=== PATIENT | female | born 1975 | race Two or more races ===

== ENCOUNTER 2016-09-29 06:45 | Observation (INO) | payer BC ==
[2016-09-29] MEDS ORDERED: CEFAZOLIN 1 GM VIAL ONE (07:03)
[2016-09-29] MEDS ORDERED: HYDROmorphone 1 MG INJECTION IV PRN ×2 (07:05)
[2016-09-29] MEDS ORDERED: MEPERIDINE 25 MG/ML TUBEX IV PRN (07:05)
[2016-09-29] MEDS ORDERED: hydrALAZINE 20 MG/ML VIAL IV PRN (07:05)
[2016-09-29] MEDS ORDERED: LABETALOL 20 MG/4 ML SYRINGE IV PRN (07:05)
[2016-09-29] MEDS ORDERED: FENTANYL 100 MCG/2 ML VIAL IV PRN (07:05)
[2016-09-29] MEDS ORDERED: ONDANSETRON HCL 4 MG ODT TAB PO PRN (07:05)
[2016-09-29] MEDS ORDERED: ONDANSETRON HCL 4 MG/2 ML VIAL IV PRN (07:05)
--- NOTE | 2016-09-29 07:10 | HIM.ANES ---
Anesthesia Evaluation & Plan Diagnoses: SUBMUCOUS LEIOMYOMA OF UTERUS (09/29/16) INTRAMURAL LEIOMYOMA OF UTERUS (09/29/16) EXCESSIVE AND FREQUENT MENSTRUATION WITH REGULAR CYCLE (09/29/16) DYSMENORRHEA, UNSPECIFIED (09/29/16) - Focused Review of Systems Cardiac History: No: Hx Cardiac Disorders HEENT: Yes: Hx Vision Problem (PRESCRIPTION GLASSES), Other HEENT Problems Gastrointestinal: No: Hx Gastrointestinal Disorders Neurological/Musculoskeletal: No: Hx Neurological Disorders Psychological: No Hx Mental/Emotional Disorders Blood/Autoimmune: Yes: Hx Anemia No: Hx AIDS, Hx Hepatitis (type) Smoking Status: Never smoker Surgical History: Yes: Appendectomy (AGE 31) - Focused Physical Exam NPO since: after Midnight Mallampati: Class II Neck: Full Range of Motion Dental: Normal - no significant findings Cardiovascular/Chest: Normal Respiratory: Lungs clear Any problems with anesthesia, including nausea and vomiting?: No Any relatives with a history of Malignant Hyperthermia?: No Does the patient have a history of Motion Sickness-: No Other: Allergies Allergy/AdvReac Type Severity Reaction Status Date / Time No Known Allergies Allergy Verified 09/27/16 11:29 Home Medications Medication Instructions Recorded Last Taken Type Ferrous Sulfate [Iron] 325 mg PO DAILY 09/27/16 Unknown History Folic Acid 1 mg PO DAILY 09/27/16 Unknown History Methotrexate Sodium [Methotrexate] 10 mg PO WEEKLY 09/27/16 09/26/16 History Height and Weight Patient's height 5 ft 1 in Patient's weight 54.431 kg - Anesthetic Plan Anesthesia Type: General ASA Class: 2 -: I have examined this patient and reviewed the medical record. The patient has been assessed prior to anesthesia. Risks and benefits of anesthesia and anesthetic technique options have been discussed and all questions answered. The patient accepts the risk and desires me to proceed with the planned anesthetic.
[2016-09-29] MEDS ORDERED: BUPIVACAINE 0.25% 30 ML VIAL INF ONE (08:00)
[2016-09-29] MEDS ORDERED: SIMETHICONE 80 MG TAB PO PRN (09:35)
[2016-09-29] MEDS ORDERED: MAGNESIUM HYDROXIDE 30 ML BOTTLE PO PRN (09:35)
[2016-09-29] MEDS ORDERED: DIPHENHYDRAMINE 50 MG/ML VIAL IV PRN (09:35)
[2016-09-29] MEDS ORDERED: PROMETHAZINE 25 MG/ML VIAL IV PRN (09:35)
[2016-09-29] MEDS ORDERED: OXYCODONE HCL 5 MG TABLET PO PRN (09:35)
[2016-09-29] MEDS ORDERED: Aluminum;Magnesium;Simethicone 30 ML UDC PO PRN (09:35)
[2016-09-29] MEDS: FENTANYL 100 MCG/2 ML VIAL IV PRN ×2 (09:45→09:55)
[2016-09-29] MEDS ORDERED: FENTANYL 100 MCG/2 ML VIAL ONE (09:46)
--- NOTE | 2016-09-29 09:48 | HIMOPRPT ---
DATE OF PROCEDURE: 09/29/16 PREOPERATIVE DIAGNOSIS: 1) dysmenorrhea 2) Menorrhagia 3) fibroid uterus POSTOPERATIVE DIAGNOSIS: 1) dysmenorrhea 2) Menorrhagia 3) fibroid uterus 4) endometriosis PROCEDURE: Total laparoscopic hysterectomy, bilateral salpingo-oophorectomy, cystoscopy SURGEON: Kalyani Crawford DO. ANESTHESIA: General. ESTIMATED BLOOD LOSS: 50 mL. COMPLICATIONS: None. DRAINS: Buck SPECIMENS: Uterus, cervix, bilateral tubes and ovaries FINDIN) 8 wk sized uterus 2) normal appearing tubes and ovaries 3) bladder with bilateral ureteral flow PROCEDURE IN DETAIL: The patient was taken to the operating room and placed on the operating room table in dorsal supine position. General anesthesia was then administered. She was then placed in low lithotomy position in Yellowfin stirrups with her arms tucked at her side. The patient was then prepped and draped in sterile fashion. The time out was then called. A Buck catheter was then placed without difficulty returning clear yellow urine. The lower edge of the umbilicus was injected with 0.25% Sensorcaine. A small vertical incision was made and a 5mm size trocar was placed under direct visualization. The abdomen was then infused with CO2. The patient was placed in deep Trendelenburg position. In the left lower quadrant, 3 fingerbreadths above the anterior superior iliac spine lateral to the epigastric vessels, the abdominal wall was injected with 0.25% Sensorcaine. An incision was made and a 10mm trocar was applied under direct visualization. The same procedure was used to place a 5mm trocar in the right lower quadrant. The uterus was then elevated. The pelvis was inspected and the above findings noted. The left mesosalpinx was taken down to the level of the round ligament which was transected as well. The bladder flap was then developed anteriorly. The left uterine artery pedicle was transected with ROJAS on minimum power. Several bites were taken medial and distal to this of the parametrial tissue down to the level of the internal cervical os. Once this was completed on the left side, the same procedure was carried out on the right side. The bladder flap was further developed gently using the ROJAS and a peanut applicator. A wet sponge stick was then placed in the vagina. The anterior fornix was distended and entered with the back blade of the ROJAS harmonic on max power. The posterior fornix was entered in a similar fashion. A wet lap tape was placed in the vagina to maintain the pneumoperitoneum. The left uterosacral-cardinal ligament complex was taken down with the ROJAS harmonic on max power and then the right uterosacral-cardinal ligament complex was taken down detaching the cervix from the vaginal cuff. A single-tooth tenaculum was then introduced through the vagina and the cervix was grasped and the uterus was placed in the vaginal vault to maintain the pneumoperitoneum. The lap tape was removed. The vaginal cuff was closed with [id number] #0 Vicryl sutures, tied in extracorporeal knot-tying technique. This gave good closure and adequate hemostasis to the cuff. The pelvis was irrigated with warm normal saline. Hemostasis was adequate. The pressure was reduced to 3mmHg and hemostasis was still noted. At this point , the bladder was instilled and noted to be intact with 300cc of sterile saline. Pneumoperitoneum was then evacuated. At this point the Buck catheter was removed. The 5mm scope was used to perform cystoscopy and bilateral ureteral jets were noted and the bladder dome appeared normal. The Buck catheter was then replaced to straight drainage. The ports were then removed. The abdominal incisions were then closed using 4-0 monocryl in a subcuticular fashion and dermabond was placed. The patient tolerated the procedure well. All sponge, instrument, lap, and needle counts were correct x2. She was transported to recovery in stable condition.
[2016-09-29] MEDS ORDERED: Vaccine Screening Complete SCH (12:00)
[2016-09-29] MEDS: KETOROLAC TROMETH 30 MG/ML VIAL IV SCH ×2 (12:24→18:09)
[2016-09-29] MEDS ORDERED: GLYCOPYRROLATE 1 MG VIAL IM ONE (12:50)
[2016-09-29] MEDS ORDERED: FENTANYL 250 MCG/5 ML VIAL IV ONE (12:50)
[2016-09-29] MEDS ORDERED: ROCURONIUM 50 MG/5 ML VIAL IV ONE (12:50)
[2016-09-29] MEDS ORDERED: DIPHENHYDRAMINE 50 MG/ML VIAL IV ONE (12:50)
[2016-09-29] MEDS ORDERED: DEXAMETHASONE 4 MG/ML VIAL IV ONE (12:50)
[2016-09-29] MEDS ORDERED: MIDAZOLAM 2 MG/2 ML VIAL IV ONE (12:50)
[2016-09-29] MEDS ORDERED: NEOSTIGMINE 1 MG/1 ML (1:1000) INJ 10 ML MDV IM ONE (12:50)
[2016-09-29] MEDS ORDERED: PROPOFOL 200 MG/20 ML VIAL IV ONE (12:50)
[2016-09-29] MEDS ORDERED: ONDANSETRON HCL 4 MG/2 ML VIAL IV ONE (12:50)
[2016-09-29] MEDS: LR 1,000 ML IV SCH (14:45)
[2016-09-29] MEDS: OXYCODONE HCL 5 MG TABLET PO PRN ×2 (14:56→22:04)
--- NOTE | 2016-09-29 17:51 | SC.ANESPOS ---
Post-Anesthesia Note LOC: Fully Awake Post-Anesthesia Assessment: Awake, Returned to Baseline, Hemodynamically Stable , Pain Control Adequate Phase I & II Recovery Complete: Yes Apparent Anesthesia Complication: No : N PACU Discharge Time: 10:55 - Vital Signs Blood Pressure: 110/59 Pulse: 77 Resp Rate: 16 O2 Sat: 100 Temp: 97.8 F - Comments Anesthesia Discharge Time Report Time 10:55
[2016-09-29] MEDS: Docusate Sodium 100 MG CAP PO SCH (22:04)
[2016-09-30] MEDS: LR 1,000 ML IV SCH ×2 (00:09→08:19)
[2016-09-30] MEDS: KETOROLAC TROMETH 30 MG/ML VIAL IV SCH ×3 (00:09→11:46)
[2016-09-30] MEDS: Docusate Sodium 100 MG CAP PO SCH (08:19)
[2016-09-30 10:17] VITALS: BP 109/56; PULSE 66; TEMP 98.2
--- NOTE | 2016-09-30 11:56 | OBGYNPROG ---
- Subjective Hospital Day #: 2 Post Op Day: 1 Cheif Complaint: s/p TLH, BS, cysto Reports: Tolerating Regular Diet, Passing Flatus, Voiding Freely. Denies: Complaints, Vomitting, Shortness of Breath, Chest Pain, Dizziness Pain: Reports: Well Managed - Objective Vital Signs: H&H Results 09/30/16 05:48 Hgb 8.9 L D Hct 27.0 L Last Vital Signs Temp 98.2 F 09/30/16 10:16 Pulse 66 09/30/16 10:16 Resp 16 09/30/16 10:16 BP 109/56 L 09/30/16 10:16 Pulse Ox 100 09/29/16 17:51 GENERAL: Alert, Oriented, No Acute Distress CARDIOVASCULAR/CHEST: Normal RESPIRATORY: Normal - CTA ABDOMEN: Bowel Sounds Present, Non-Distended, Non-Tender, Soft INCISION: Dermabond Intact, Incision Clean/Dry/Intact EXTERMITIES: Moves All Extremeties. negative: Edema OBGYN Progress Note - ASSESSMENT (1) S/P laparoscopic hysterectomy Status: Acute Code(s): Z90.710 - ACQUIRED ABSENCE OF BOTH CERVIX AND UTERUS (2) S/P cystoscopy Status: Acute Code(s): Z98.890 - OTHER SPECIFIED POSTPROCEDURAL STATES (3) Status post bilateral salpingectomy Status: Acute Code(s): Z90.79 - ACQUIRED ABSENCE OF OTHER GENITAL ORGAN(S) - PLAN Routine Post Op Care, Discharge (pending tolerating stable hemoglobin), Monitor Labs (repeat H and H at noon)
--- NOTE | 2016-09-30 12:29 | PCM.DCS92 ---
- Primary/Secondary Discharge Diagnoses (1) S/P laparoscopic hysterectomy Acute Z90.710 - ACQUIRED ABSENCE OF BOTH CERVIX AND UTERUS (2) S/P cystoscopy Acute Z98.890 - OTHER SPECIFIED POSTPROCEDURAL STATES (3) Status post bilateral salpingectomy Acute Z90.79 - ACQUIRED ABSENCE OF OTHER GENITAL ORGAN(S) - HOSPITAL COURSE PROCEDURE: Pt is a 40 year old female admitted on 09/29/16 for scheduled surgery. She underwent an uncomplicated laparoscopic TLH, BS, and cystoscopy due to dysmenorrhea, menorrhagia, anemia, and a fibroid uterus. She did well postoperatively and was discharged home in stable condition on POD#1, tolerating regular diet, passing flatus, voiding freely, and with her pain controlled on PO pain meds. She is to follow up in the office ([facility]) in 2 weeks for a postop appointment. /Op Complications: None - DISCHARGE INSTRUCTIONS Discharge Disposition: Home Discharge Condition: Good Cognitive Discharge Status: Unimpaired Fuctional Discharge Status: Independent Patient Leaving with Prescriptions?: Yes Home Medications/ New Prescriptions: New Ibuprofen Tablet [Motrin] 800 mg PO TID #30 tab Oxycodone Immediate Release [Oxy-Ir] 1 - 2 tab PO Q6H PRN #30 tab PRN Reason: Pain No Action Methotrexate Sodium [Methotrexate] 10 mg PO WEEKLY Ferrous Sulfate [Iron] 325 mg PO DAILY Folic Acid 1 mg PO DAILY - Diet Diet at Discharge: As Tolerated, Regular - Activity Activity: No Heavy Lifting, Pelvic Rest, No Driving Do not lift more than_pounds: 15 For:: 2 WEEKS No Driving for: Until After Post op Follow-up Appointment Other Activity Instructions: NO SEXUAL ACTIVITY OR TAMPONS FOR 6 WEEKS - Instructions Call Physician for: Sudden/Sever Chest Pain, Foul Smelling Discharge, Pain/ Redness in Calf/Leg, Temperature Above 100.4, Drainiage from Wound - Incision Incision, Lacerations, or Tears: Yes Dressing/Site Care (if applicable): WASH DAILY WITH SOAP AND WATER, PAT DRY. CALL THE OFFICE FOR RED, GREEN OR YELLOW DRAINAGE - DC Summary Notes Discharge Medications: *See "Discharge Medication List" for a complete list of Home Medications and Discharge Medications.* Obstetric Hospital Course - Admitting Diagnosis Admission Date: 09/29/16
== END 2016-09-30 12:51 | disposition home or self-care (01) ==
LOC: SDC 06:45 → MASU 10:54
PROVIDERS: ADMIT Obstetrics & Gynecology; ATTEND Obstetrics & Gynecology
PROC: 0UT94ZZ Resection of Uterus, Percutaneous Endoscopic Approach (ICD-10-PCS; principal; 2016-09-29 08:05)
DX: N94.6 Dysmenorrhea, unspecified (principal); N92.0 Excessive and frequent menstruation with regular cycle; D25.0 Submucous leiomyoma of uterus; D25.1 Intramural leiomyoma of uterus; N80.9 Endometriosis, unspecified; N72 Inflammatory disease of cervix uteri; D64.9 Anemia, unspecified
CPT/HCPCS: 58571; 85014; 85018; 96361; 96374; 96376; G0237; J0690; J1100; J1200; J1885; J2250; J2405; J2710; J3010; J3490; S0020